=== PATIENT | female | born 1975 | race Caucasian/White ===

== ENCOUNTER 2017-06-22 14:42 | Emergency (ER) | payer OTHER ==
[~2017-06-22] VITALS: Ht 165.1 cm; Wt 56.0 kg
[~2017-06-22 14:42] MED LIST: WELL150T PO
[2017-06-22 14:59] VITALS: PULSE 99; RESP 18; TEMP 97.9; O2SAT 98
[2017-06-22 15:35] LABS: AUTOMATED NEUTROPHIL # 4.2 TH/MM3 (1.8-7.7); BASOPHIL % 0.7 % (0.0-2.0); EOSINOPHIL # 0.1 TH/MM3 (0-0.4); EOSINOPHIL % 0.8 % (0.0-4.0); HEMATOCRIT 42.2 % (35.0-46.0); HEMO FLAGS DIFF FINAL; LYMPHOCYTE # 2.7 TH/MM3 (1.0-4.8); MEAN CELL VOLUME 95.4 FL (80.0-100.0); MEAN CORPUSCULAR HEMOGLOBIN 31.7 PG (27.0-34.0); MEAN CORPUSCULAR HGB CONC 33.2 % (32.0-36.0); MONO % 3.6 % (0.0-8.0); NEUT % 57.9 % (16.0-70.0); PLATELET COUNT 380 TH/MM3 (150-450); RED BLOOD COUNT 4.42 MIL/MM3 (4.00-5.30); RED CELL DISTRIBUTION WIDTH 13.5 % (11.6-17.2); WHITE BLOOD COUNT 7.3 TH/MM3 (4.0-11.0)
[2017-06-22] MEDS ORDERED: ZIPRASIDONE MESYLATE 20 MG VIAL IM ONE ×2 (15:57→16:15)
[2017-06-22] MEDS ORDERED: LORazepam 2 MG/ML VIAL ONE (15:57)
[2017-06-22] MEDS ORDERED: diphenhydrAMINE HCL 50 MG/ML VIAL ONE (16:02)
[2017-06-22 16:10] LABS: ALKALINE PHOSPHATASE 70 U/L (45-117); ALT (GPT) 44 U/L (10-53); ANION GAP 10 MEQ/L (5-15); AST (GOT) 60 U/L (15-37); BICARBONATE 22.9 MEQ/L (21.0-32.0); BLOOD UREA NITROGEN 16 MG/DL (7-18); CHLORIDE 106 MEQ/L (98-107); GLOMERULAR FILTRATION RATE 75 ML/MIN (>89); SODIUM (NA) 139 MEQ/L (136-145); TOTAL BILIRUBIN ADULT 0.3 MG/DL (0.2-1.0)
[2017-06-22 16:11] LABS: POTASSIUM 4.5 MEQ/L (3.5-5.1)
[2017-06-22] MEDS ORDERED: diphenhydrAMINE HCL 50 MG/ML VIAL IM ONE (16:15)
[2017-06-22] MEDS ORDERED: LORazepam 2 MG/ML VIAL IM ONE (16:15)
--- NOTE | 2017-06-22 16:20 | PD ---
History of Present Illness Chief Complaint: Psychiatric Symptoms Time Seen by Provider: 16:00 Travel History International Travel<30 Days: No Contact w/Intl Traveler<30days: No Known affected area: No Legal Status Legal Status: Lowery Act History of Present Illness: 42-year-old female who is a very poor historian, yelling and calling staff members "bitches" and for everyone present to "fuck off", given intramuscular injections for Geodon 20 mg, Benadryl 50 mg and Ativan 2 mg after beating on the metal in her room. Patient is highly agitated and uncooperative. She reportedly does not have a psychiatric history. Thus far, her hematology and chemistry laboratories do not show any significant abnormalities that would explain this behavior. Toxicology is pending. [facility] Past Medical History Medical History: Denies Significant Hx Autoimmune Disease: No Blood Disorders: No Anxiety: No Depression: No Cancer: No Cardiovascular Problems: No Chemotherapy: No Diabetes: No Diminished Hearing: No Endocrine: No GERD: No Glaucoma: No Genitourinary: No Headaches: Yes Hepatitis: No Immune Disorder: No Musculoskeletal: Yes Neurologic: Yes Reproductive: No Respiratory: Yes Radiation Therapy: No Thyroid Disease: No Ulcer: No ?: Not Past Surgical History Abdominal Surgery: No AICD: No Appendectomy: No Arteriovenous Shunt: No Cardiac Surgery: No Section: Yes (X 2) Cholecystectomy: No Ear Surgery: No Endocrine Surgery: No Eye Surgery: No Genitourinary Surgery: No Gynecologic Surgery: Yes (C/SECTION 2006/ C/SECTION 2005) Insulin Pump: No Joint Replacement: No Neurologic Surgery: Yes (C 5,6) Oral Surgery: No Pacemaker: No Thoracic Surgery: No Other Surgery: Yes (C/SECTION 2006/ C/SECTION 2005) Psychiatric History Psychiatric History Hx Psychiatric Treatment: Denied Guns or firearms in home: No Social History Hx Alcohol Use: Yes (" MUCH SHE CAN" ) Hx Tobacco Use: Yes Hx Substance Use: Yes (JAKOB) Hx of Substance Use Treatment: No Allergies-Medications (Allergen,Severity, Reaction): Coded Allergies: No Known Allergies (Verified , 12/16/14) Reported Meds & Prescriptions Reported Meds & Active Scripts Active Reported Wellbutrin Sr (Bupropion HCl) 150 Mg Tab 150 Mg PO Q12H Review of Systems Except as stated in HPI: all other systems reviewed are Neg Exam Alert: Yes [place]: Person Mood: Agitated Affect: Labile Speech: Illogical Eye Contact: Other Memory Intact: Immediate Insight/Judgement Poor MDM Medical Decision Making Medical Record Reviewed: Yes Assessment/Plan This physician attempted to talk with the patient and interviewed the nurse. Patient remains too agitated to have a cogent conversation. We will continue to monitor her and wait for medications to work. We will also continue to exam and laboratory results as they come in. Orders Orders Complete Blood Count With Diff (06/22/17 15:14) Comprehensive Metabolic Panel (06/22/17 15:14) Psych Screen (06/22/17 15:14) Ziprasidone Inj (Geodon Inj) (06/22/17 15:57) Lorazepam Inj (Ativan Inj) (06/22/17 15:57) Diphenhydramine Inj (Benadryl Inj) (06/22/17 16:02) Ziprasidone Inj (Geodon Inj) (06/22/17 16:15) Diphenhydramine Inj (Benadryl Inj) (06/22/17 16:15) Lorazepam Inj (Ativan Inj) (06/22/17 16:15) Results Vital Signs Date Time Temp Pulse Resp B/P (MAP) Pulse Ox O2 Delivery O2 Flow Rate FiO2 06/22/17 14:59 97.9 99 18 98 Laboratory Tests Test 06/22/17 15:00 White Blood Count 7.3 Red Blood Count 4.42 Hemoglobin 14.0 Hematocrit 42.2 Mean Corpuscular Volume 95.4 Mean Corpuscular Hemoglobin 31.7 Mean Corpuscular Hemoglobin Concent 33.2 Red Cell Distribution Width 13.5 Platelet Count 380 Mean Platelet Volume 6.3 Neutrophils (%) (Auto) 57.9 Lymphocytes (%) (Auto) 37.0 Monocytes (%) (Auto) 3.6 Eosinophils (%) (Auto) 0.8 Basophils (%) (Auto) 0.7 Neutrophils # (Auto) 4.2 Lymphocytes # (Auto) 2.7 Monocytes # (Auto) 0.3 Eosinophils # (Auto) 0.1 Basophils # (Auto) 0.0 CBC Comment DIFF FINAL Differential Comment Blood Urea Nitrogen 16 Creatinine 0.83 Random Glucose 92 Total Protein 7.7 Albumin 4.1 Calcium Level 8.4 Alkaline Phosphatase 70 Aspartate Amino Transf (AST/SGOT) 60 Alanine Aminotransferase (ALT/SGPT) 44 Total Bilirubin 0.3 Sodium Level 139 Potassium Level 4.5 Chloride Level 106 Carbon Dioxide Level 22.9 Anion Gap 10 Estimat Glomerular Filtration Rate 75 Diagnosis Primary Impression: Adjustment disorder with mixed disturbance of emotions and conduct Feliciano Mc MD Jun 22, 2017 16:20
[2017-06-22 19:43] VITALS: BP 113/62; PULSE 86; RESP 18; O2SAT 98
--- NOTE | 2017-06-22 19:44 | PD ---
HPI Chief Complaint: Psychiatric Symptoms Time Seen by Provider: 19:25 Travel History International Travel<30 days: No Contact w/Intl Traveler<30days: No Traveled to known affect area: No History of Present Illness HPI 42-year-old female presents under Lowery act initiated by the [employer]. According to her paperwork, "according to Mr. his ex-, Catrina has been diagnosed as being bipolar and has recently been paranoid and delusional. Catrina made several comments to Florentino earlier today that she had given up on life and is looking for a quick way to end her life. Catrina took the doorknob off of her front door because someone locked inside her apartment even though she lives alone. Catrina had slightly barricaded her front door with a vacuum and picture frame and became uneasy upon police contact. After detaining Catrina, I noticed that she had several minor superficial lacerations to her left wrist, which appear to be self-inflicted. Catrina has had an up-and-down mood." Upon my examination the patient is sleeping, arousable but drowsy. It appears that the patient was premedicated by Dr. Mc with Geodon, Ativan and Benadryl due to agitated behavior. History is limited. She appears to have superficial linear abrasions to the left wrist which are self-inflicted. She endorses alcohol use as well as occasional marijuana use. Denies any other drug use. PFSH Past Medical History Autoimmune Disease: No Blood Disorders: No Anxiety: No Depression: No Cancer: No Cardiovascular Problems: No Chemotherapy: No Diabetes: No Diminished Hearing: No Endocrine: No GERD: No Glaucoma: No Genitourinary: No Headaches: Yes Hepatitis: No Immune Disorder: No Musculoskeletal: Yes Neurologic: Yes Reproductive: No Respiratory: Yes Radiation Therapy: No Thyroid Disease: No Ulcer: No ?: Not Past Surgical History Abdominal Surgery: No AICD: No Appendectomy: No Arteriovenous Shunt: No Cardiac Surgery: No Section: Yes (X 2) Cholecystectomy: No Ear Surgery: No Endocrine Surgery: No Eye Surgery: No Genitourinary Surgery: No Gynecologic Surgery: Yes (C/SECTION 2006/ C/SECTION 2005) Insulin Pump: No Joint Replacement: No Neurologic Surgery: Yes (C 5,6) Oral Surgery: No Pacemaker: No Thoracic Surgery: No Other Surgery: Yes (C/SECTION 2006/ C/SECTION 2005) Social History Alcohol Use: Yes (" MUCH SHE CAN" ) Tobacco Use: Yes Substance Use: Yes (RADHAUMER) Allergies-Medications (Allergen,Severity, Reaction): Coded Allergies: No Known Allergies (Verified , 12/16/14) Reported Meds & Prescriptions Reported Meds & Active Scripts Active Reported Wellbutrin Sr (Bupropion HCl) 150 Mg Tab 150 Mg PO Q12H Review of Systems ROS Limitations: Clinical Condition Except as stated in HPI: all other systems reviewed are Neg Physical Exam Exam Limitations: Clinical Condition Narrative GENERAL: Well-developed well-nourished female who is sleeping, arousable, but drowsy. Her vital signs are reviewed. SKIN: Warm and dry. Superficial linear abrasions to left wrist. HEAD: Atraumatic. Normocephalic. EYES: Pupils equal and round. No scleral icterus. No injection or drainage. ENT: No nasal bleeding or discharge. Mucous membranes pink and moist. NECK: Trachea midline. No JVD. CARDIOVASCULAR: Regular rate and rhythm. No murmur appreciated. RESPIRATORY: No accessory muscle use. Clear to auscultation. Breath sounds equal bilaterally. GASTROINTESTINAL: Abdomen soft, non-tender, nondistended. Hepatic and splenic margins not palpable. MUSCULOSKELETAL: No obvious deformities. No clubbing. No cyanosis. No edema. NEUROLOGICAL: Drowsy but arousable. No obvious cranial nerve deficits. Motor grossly within normal limits. Normal speech. Data Data Last Documented VS Vital Signs Date Time Temp Pulse Resp B/P (MAP) Pulse Ox O2 Delivery O2 Flow Rate FiO2 06/22/17 19:43 86 18 113/62 (79) 98 Room Air 06/22/17 14:59 97.9 Orders Orders Complete Blood Count With Diff (06/22/17 15:14) Comprehensive Metabolic Panel (06/22/17 15:14) Psych Screen (06/22/17 15:14) Ziprasidone Inj (Geodon Inj) (06/22/17 15:57) Lorazepam Inj (Ativan Inj) (06/22/17 15:57) Diphenhydramine Inj (Benadryl Inj) (06/22/17 16:02) Ziprasidone Inj (Geodon Inj) (06/22/17 16:15) Diphenhydramine Inj (Benadryl Inj) (06/22/17 16:15) Lorazepam Inj (Ativan Inj) (06/22/17 16:15) Urinalysis - C+S If Indicated (06/22/17 18:46) Ed Urine Pregnancytest Poc (06/22/17 19:40) Drug Screen, Random Urine (06/22/17 19:40) Tetanus/Diphtheria Tox Adult (Tetanus/Di (06/22/17 19:45) Labs Laboratory Tests Test 06/22/17 15:00 06/22/17 15:33 White Blood Count 7.3 TH/MM3 Red Blood Count 4.42 MIL/MM3 Hemoglobin 14.0 GM/DL Hematocrit 42.2 % Mean Corpuscular Volume 95.4 FL Mean Corpuscular Hemoglobin 31.7 PG Mean Corpuscular Hemoglobin Concent 33.2 % Red Cell Distribution Width 13.5 % Platelet Count 380 TH/MM3 Mean Platelet Volume 6.3 FL Neutrophils (%) (Auto) 57.9 % Lymphocytes (%) (Auto) 37.0 % Monocytes (%) (Auto) 3.6 % Eosinophils (%) (Auto) 0.8 % Basophils (%) (Auto) 0.7 % Neutrophils # (Auto) 4.2 TH/MM3 Lymphocytes # (Auto) 2.7 TH/MM3 Monocytes # (Auto) 0.3 TH/MM3 Eosinophils # (Auto) 0.1 TH/MM3 Basophils # (Auto) 0.0 TH/MM3 CBC Comment DIFF FINAL Differential Comment Blood Urea Nitrogen 16 MG/DL Creatinine 0.83 MG/DL Random Glucose 92 MG/DL Total Protein 7.7 GM/DL Albumin 4.1 GM/DL Calcium Level 8.4 MG/DL Alkaline Phosphatase 70 U/L Aspartate Amino Transf (AST/SGOT) 60 U/L Alanine Aminotransferase (ALT/SGPT) 44 U/L Total Bilirubin 0.3 MG/DL Sodium Level 139 MEQ/L Potassium Level 4.5 MEQ/L Chloride Level 106 MEQ/L Carbon Dioxide Level 22.9 MEQ/L Anion Gap 10 MEQ/L Estimat Glomerular Filtration Rate 75 ML/MIN Urine Color LIGHT-YELLOW Urine Turbidity CLEAR Urine pH 5.5 Urine Specific [place] 1.012 Urine Protein NEG mg/dL Urine Glucose (UA) NEG mg/dL Urine Ketones NEG mg/dL Urine Occult Blood MOD Urine Nitrite NEG Urine Bilirubin NEG Urine Urobilinogen LESS THAN 2.0 MG/DL Urine Leukocyte Esterase NEG Urine RBC 1 /hpf Urine WBC 1 /hpf Urine Squamous Epithelial Cells 1 /hpf Urine Bacteria RARE /hpf Microscopic Urinalysis Comment CULT NOT INDICATED Urine Opiates Screen NEG Urine Barbiturates Screen NEG Urine Amphetamines Screen NEG Urine Benzodiazepines Screen NEG Urine Cocaine Screen NEG Urine Cannabinoids Screen POS MDM Medical Decision Making Medical Screen Exam Complete: Yes Emergency Medical Condition: Yes Medical Record Reviewed: Yes Differential Diagnosis Acute psychosis, substance induced mood disorder, schizophrenia, medication noncompliance, schizoaffective disorder, meningitis, encephalitis Narrative Course 42-year-old female with reported history of bipolar disorder presents under Lowery act for psychiatric evaluation. Mental health screening discussed with the patient. Psychiatric screen ordered. Diagnosis Primary Impression: Adjustment disorder with disturbance of emotion Lopez Cordero Jun 22, 2017 19:44
[2017-06-22] MEDS ORDERED: TETANUS/DIPHTHERIA TOXOID ADULT 0.5 ML VIAL IM ONE (19:45)
[2017-06-22 20:46] LABS: BACTERIA, URINE RARE /hpf; BLOOD, URINE MOD (NEG); COMMENT (UR) CULT NOT INDICATED; CULTURE IF INDICATED CULT NOT INDICATED; GLUCOSE,URINE NEG (NEG); KETONE, URINE NEG (NEG); NITRITE,URINE NEG (NEG); PH, URINE 5.5 (5.0-8.5); SQUAMOUS EPITHELIAL CELL URINE 1 /hpf (0-5); URINE COLOR LIGHT-YELLOW (YELLW/STRAW)
[2017-06-22 22:04] VITALS: BP 148/79; PULSE 90; RESP 18; O2SAT 95
[2017-06-23 02:00] VITALS: BP 121/67; PULSE 105; RESP 19; O2SAT 98
[2017-06-23 06:59] VITALS: BP 160/84; PULSE 108; RESP 17; O2SAT 100
--- NOTE | 2017-06-23 10:27 | PD ---
Physical Exam Date Seen by Provider: Jun 23, 2017 Time Seen by Provider: 10:26 Narrative Patient is cleared by the psychiatrist Dr. Mc. Please see his discharge instructions. Medically this patient is felt to be stable for discharge. Data Data Last Documented VS Vital Signs Date Time Temp Pulse Resp B/P (MAP) Pulse Ox O2 Delivery O2 Flow Rate FiO2 06/23/17 06:59 108 17 160/84 (109) 100 06/23/17 02:00 Room Air 06/22/17 14:59 97.9 Orders Orders Complete Blood Count With Diff (06/22/17 15:14) Comprehensive Metabolic Panel (06/22/17 15:14) Psych Screen (06/22/17 15:14) Ziprasidone Inj (Geodon Inj) (06/22/17 15:57) Lorazepam Inj (Ativan Inj) (06/22/17 15:57) Diphenhydramine Inj (Benadryl Inj) (06/22/17 16:02) Ziprasidone Inj (Geodon Inj) (06/22/17 16:15) Diphenhydramine Inj (Benadryl Inj) (06/22/17 16:15) Lorazepam Inj (Ativan Inj) (06/22/17 16:15) Urinalysis - C+S If Indicated (06/22/17 18:46) Ed Urine Pregnancytest Poc (06/22/17 19:40) Drug Screen, Random Urine (06/22/17 19:40) Tetanus/Diphtheria Tox Adult (Tetanus/Di (06/22/17 19:45) Diet Regular Basic (06/23/17 Breakfast) Diet Regular Basic (06/23/17 Lunch) Labs Laboratory Tests Test 06/22/17 15:00 06/22/17 15:33 White Blood Count 7.3 TH/MM3 Red Blood Count 4.42 MIL/MM3 Hemoglobin 14.0 GM/DL Hematocrit 42.2 % Mean Corpuscular Volume 95.4 FL Mean Corpuscular Hemoglobin 31.7 PG Mean Corpuscular Hemoglobin Concent 33.2 % Red Cell Distribution Width 13.5 % Platelet Count 380 TH/MM3 Mean Platelet Volume 6.3 FL Neutrophils (%) (Auto) 57.9 % Lymphocytes (%) (Auto) 37.0 % Monocytes (%) (Auto) 3.6 % Eosinophils (%) (Auto) 0.8 % Basophils (%) (Auto) 0.7 % Neutrophils # (Auto) 4.2 TH/MM3 Lymphocytes # (Auto) 2.7 TH/MM3 Monocytes # (Auto) 0.3 TH/MM3 Eosinophils # (Auto) 0.1 TH/MM3 Basophils # (Auto) 0.0 TH/MM3 CBC Comment DIFF FINAL Differential Comment Blood Urea Nitrogen 16 MG/DL Creatinine 0.83 MG/DL Random Glucose 92 MG/DL Total Protein 7.7 GM/DL Albumin 4.1 GM/DL Calcium Level 8.4 MG/DL Alkaline Phosphatase 70 U/L Aspartate Amino Transf (AST/SGOT) 60 U/L Alanine Aminotransferase (ALT/SGPT) 44 U/L Total Bilirubin 0.3 MG/DL Sodium Level 139 MEQ/L Potassium Level 4.5 MEQ/L Chloride Level 106 MEQ/L Carbon Dioxide Level 22.9 MEQ/L Anion Gap 10 MEQ/L Estimat Glomerular Filtration Rate 75 ML/MIN Urine Color LIGHT-YELLOW Urine Turbidity CLEAR Urine pH 5.5 Urine Specific [place] 1.012 Urine Protein NEG mg/dL Urine Glucose (UA) NEG mg/dL Urine Ketones NEG mg/dL Urine Occult Blood MOD Urine Nitrite NEG Urine Bilirubin NEG Urine Urobilinogen LESS THAN 2.0 MG/DL Urine Leukocyte Esterase NEG Urine RBC 1 /hpf Urine WBC 1 /hpf Urine Squamous Epithelial Cells 1 /hpf Urine Bacteria RARE /hpf Microscopic Urinalysis Comment CULT NOT INDICATED Urine Opiates Screen NEG Urine Barbiturates Screen NEG Urine Amphetamines Screen NEG Urine Benzodiazepines Screen NEG Urine Cocaine Screen NEG Urine Cannabinoids Screen POS MDM Medical Record Reviewed: Yes Supervised Visit with DAKSHA: Yes Narrative Course Patient is cleared by the psychiatrist Dr. Mc. Please see his discharge instructions. Medically this patient is felt to be stable for discharge. Diagnosis Primary Impression: Adjustment disorder with disturbance of emotion Patient Instructions: General Instructions Disposition: 01 DISCHARGE HOME Condition: Stable Juan Mathew Jun 23, 2017 10:27
[2017-06-23 10:34] VITALS: BP 168/99; PULSE 94; RESP 18; O2SAT 100
[2017-06-23 10:46] VITALS: BP 168/99
--- NOTE | 2017-06-23 10:50 | PD ---
History of Present Illness Chief Complaint: Psychiatric Symptoms Time Seen by Provider: 10:00 Travel History International Travel<30 Days: No Contact w/Intl Traveler<30days: No Known affected area: No Legal Status Legal Status: Lowery Act Lowery Act Signed By: Marie Armstrong History of Present Illness: History of Present Illness HPI 42-year-old female with no reported psychiatric history who presents to ed under Lowery act initiated by the [employer] Department. According to her paperwork , "according to Mr. his ex-, Catrina has been diagnosed as being bipolar and has recently been paranoid and delusional. Catrina made several comments to Florentino earlier today that she had given up on life and is looking for a quick way to end her life. Catrina took the doorknob off of her front door because someone locked inside her apartment even though she lives alone. Catrina had slightly barricaded her front door with a vacuum and picture frame and became uneasy upon police contact. After detaining Catrina, I noticed that she had several minor superficial lacerations to her left wrist, which appear to be self- inflicted. Catrina has had an up-and-down mood." .Patient arrived to [facility] agitated , yelling profanities to staff, demanding to leave, punching the garibay and required ETOs. She reained in [place] but slept and presented no further behavioral concerns. EMR is reviewed. No previous contact with [facility] psychiatry. Toxicology is positive for cannabinoids. Patient is seen this morning with STAR Cavanaugh. She is alert, oriented an calm female dressed in [facility]. Speech is clear and logical, of normal rate , tone and rhythm. There is no psychosis and no paranoia. No suicidal or homicidal ideation, intent or plan. She states " I would never hurt myself or anyone else. I have two boys and I would not do that to them. " She admits to hx of narcotic medication abuse in the past. currently denies any use of narcotics but admits to smoking marijuana. Although she admits to feeling overwhelmed with trying to obtain care for her back and neck due to restrictions on her insurance she is future oriented and has plans on following up with obtaining an MRI approved by medicaid. She also plans on contacting her counselor Ms. Irena Bustillos, which she has seen for the past 4 years. She does not want to use medications at this time. [facility] Past Medical History Medical History: Denies Significant Hx Autoimmune Disease: No Blood Disorders: No Anxiety: No Depression: No Cancer: No Cardiovascular Problems: No Chemotherapy: No Diabetes: No Diminished Hearing: No Endocrine: No GERD: No Glaucoma: No Genitourinary: No Headaches: Yes Hepatitis: No Immune Disorder: No Musculoskeletal: Yes Neurologic: Yes Reproductive: No Respiratory: Yes Radiation Therapy: No Thyroid Disease: No Ulcer: No ?: Not Past Surgical History Abdominal Surgery: No AICD: No Appendectomy: No Arteriovenous Shunt: No Cardiac Surgery: No Section: Yes (X 2) Cholecystectomy: No Ear Surgery: No Endocrine Surgery: No Eye Surgery: No Genitourinary Surgery: No Gynecologic Surgery: Yes (C/SECTION 2006/ C/SECTION 2005) Insulin Pump: No Joint Replacement: No Neurologic Surgery: Yes (C 5,6) Oral Surgery: No Pacemaker: No Thoracic Surgery: No Other Surgery: Yes (C/SECTION 2006/ C/SECTION 2005) Psychiatric History Psychiatric History Hx Psychiatric Treatment: Denied History of Inpatient Treatment: No Guns or firearms in home: No Social History female . Lives by herself. Has 2 children ages 10 and 11 years. Has shared custody. Unemployed. Hx Alcohol Use: Yes (" MUCH SHE CAN" ) Hx Tobacco Use: Yes Hx [facility]: [facility] Substance Use Type: Prescription Medications Hx of Substance Use Treatment: Yes Family Psychiatric History Sister committed suicide Allergies-Medications (Allergen,Severity, Reaction): Coded Allergies: No Known Allergies (Verified , 12/16/14) Reported Meds & Prescriptions Reported Meds & Active Scripts Active Reported Wellbutrin Sr (Bupropion HCl) 150 Mg Tab 150 Mg PO Q12H Review of Systems Musculoskeletal: COMPLAINS OF: Back pain, Neck pain Exam Alert: Yes [place]: Person (ox4) Mood: Anxious Affect: Appropriate Speech: Clear, Logical Eye Contact: Normal Memory Intact: Comment (No impairment) Hallucinations: Other (Negative) Delusions: No Suicidal: Ideation (Denies any) Homicidal: Ideation (Deneis any) Insight/Judgement Fair . Not impaired. MDM Medical Decision Making Medical Record Reviewed: Yes Assessment/Plan 42-year-old female with no reported psychiatric history who presents to ed under Lowery act initiated by the Police Department. According to her paperwork , "according to Mr. his ex-, Catrina has been diagnosed as being bipolar and has recently been paranoid and delusional. Catrina made several comments to Florentino earlier today that she had given up on life and is looking for a quick way to end her life. Patient presented with agitation on admission and required ETO. Her toxicology is positive for cannabinoids. Patient was monitored in [facility] and presented no further behavioral concerns,. This morning she does not present any psychosis, no gianfranco and no suicidal or homicidal ideation. She is requesting to be discharged and does not present any criteria to retain her under the Lowery act . She is futre oriented , has made plans to contact her outpatient therapist. has adequate protective f actors in place. She is provided psychoeducation. Patient is psychiatrically clear for discharge from ED. Lift BA. Orders Orders Complete Blood Count With Diff (06/22/17 15:14) Comprehensive Metabolic Panel (06/22/17 15:14) Psych Screen (06/22/17 15:14) Ziprasidone Inj (Geodon Inj) (06/22/17 15:57) Lorazepam Inj (Ativan Inj) (06/22/17 15:57) Diphenhydramine Inj (Benadryl Inj) (06/22/17 16:02) Ziprasidone Inj (Geodon Inj) (06/22/17 16:15) Diphenhydramine Inj (Benadryl Inj) (06/22/17 16:15) Lorazepam Inj (Ativan Inj) (06/22/17 16:15) Urinalysis - C+S If Indicated (06/22/17 18:46) Ed Urine Pregnancytest Poc (06/22/17 19:40) Drug Screen, Random Urine (06/22/17 19:40) Tetanus/Diphtheria Tox Adult (Tetanus/Di (06/22/17 19:45) Diet Regular Basic (06/23/17 Breakfast) Diet Regular Basic (06/23/17 Lunch) Results Vital Signs Date Time Temp Pulse Resp B/P (MAP) Pulse Ox O2 Delivery O2 Flow Rate FiO2 06/23/17 06:59 108 17 160/84 (109) 100 06/23/17 02:00 105 19 121/67 (85) 98 Room Air 06/22/17 22:04 90 18 148/79 (102) 95 Room Air 06/22/17 19:43 86 18 113/62 (79) 98 Room Air 06/22/17 14:59 97.9 99 18 98 Laboratory Tests Test 06/22/17 15:00 06/22/17 15:33 White Blood Count 7.3 Red Blood Count 4.42 Hemoglobin 14.0 Hematocrit 42.2 Mean Corpuscular Volume 95.4 Mean Corpuscular Hemoglobin 31.7 Mean Corpuscular Hemoglobin Concent 33.2 Red Cell Distribution Width 13.5 Platelet Count 380 Mean Platelet Volume 6.3 Neutrophils (%) (Auto) 57.9 Lymphocytes (%) (Auto) 37.0 Monocytes (%) (Auto) 3.6 Eosinophils (%) (Auto) 0.8 Basophils (%) (Auto) 0.7 Neutrophils # (Auto) 4.2 Lymphocytes # (Auto) 2.7 Monocytes # (Auto) 0.3 Eosinophils # (Auto) 0.1 Basophils # (Auto) 0.0 CBC Comment DIFF FINAL Differential Comment Blood Urea Nitrogen 16 Creatinine 0.83 Random Glucose 92 Total Protein 7.7 Albumin 4.1 Calcium Level 8.4 Alkaline Phosphatase 70 Aspartate Amino Transf (AST/SGOT) 60 Alanine Aminotransferase (ALT/SGPT) 44 Total Bilirubin 0.3 Sodium Level 139 Potassium Level 4.5 Chloride Level 106 Carbon Dioxide Level 22.9 Anion Gap 10 Estimat Glomerular Filtration Rate 75 Urine Color LIGHT-YELLOW Urine Turbidity CLEAR Urine pH 5.5 Urine Specific [place] 1.012 Urine Protein NEG Urine Glucose (UA) NEG Urine Ketones NEG Urine Occult Blood MOD Urine Nitrite NEG Urine Bilirubin NEG Urine Urobilinogen LESS THAN 2.0 Urine Leukocyte Esterase NEG Urine RBC 1 Urine WBC 1 Urine Squamous Epithelial Cells 1 Urine Bacteria RARE Microscopic Urinalysis Comment CULT NOT INDICATED Urine Opiates Screen NEG Urine Barbiturates Screen NEG Urine Amphetamines Screen NEG Urine Benzodiazepines Screen NEG Urine Cocaine Screen NEG Urine Cannabinoids Screen POS Diagnosis Primary Impression: Adjustment disorder with disturbance of emotion Additional Impression: Cannabis abuse Psychiatrically Cleared: Yes Patient Instructions: General Instructions Med/ Other Pt Specific Info: No Meds Exist/No RX given Disposition: DISCHARGE HOME Condition: Stable Problem Qualifiers Corrie Milan Jun 23, 2017 10:50
== END 2017-06-23 10:58 | disposition home or self-care (01) ==
LOC: NEPJ 14:42
DX: F43.25 Adjustment disorder with mixed disturbance of emotions and conduct (principal); F12.10 Cannabis abuse, uncomplicated; F31.9 Bipolar disorder, unspecified; Z23 Encounter for immunization; Z72.0 Tobacco use; Z79.899 Other long term (current) drug therapy
CPT/HCPCS: 80053; 80307; 81001; 84703; 85025; 90471; 90714; 99284; J1200; J2060; J3486